=== PATIENT | female | born 1960 | race Caucasian/White ===

== ENCOUNTER 2017-05-15 22:31 | Emergency (ER) | payer OTHER ==
[~2017-05-15] VITALS: Ht 172.7 cm; Wt 71.0 kg
[~2017-05-15 22:31] MED LIST: AMPH1TAB36 PO; LORA-392 PO; OXYC-360 PO; SULF1TAB47 PO; VENL75TA91 PO
[2017-05-15 22:32] VITALS: BP 121/70; PULSE 78; RESP 18; TEMP 98.1; O2SAT 96
--- NOTE | 2017-05-15 23:42 | PD ---
HPI Chief Complaint: Bite or Sting Time Seen by Provider: 23:35 Travel History International Travel<30 days: No Contact w/Intl Traveler<30days: No Traveled to known affect area: No History of Present Illness HPI Patient is a 56-year-old female who was attacked by a pit bull that latched onto her arm and she was protecting her little dog that had been attacked by the pit bull She has right forearm injuries puncture wounds and she is not sure of her tetanus status. She has no other injury or complaints it is just painful and she has multiple punctures to her right forearm, SHe did not take anything for the pain and did not see her MD for this injury. PFSH Past Medical History ADD: Yes Arthritis: Yes Anxiety: Yes Cancer: No Cardiovascular Problems: No Diminished Hearing: No Endocrine: No Genitourinary: No Headaches: Yes Immune Disorder: No Musculoskeletal: Yes Neurologic: Yes Psychiatric: Yes Reproductive: Yes (DYSMENORRHEA) Respiratory: No Migraines: Yes ?: Not Menopausal: No : 3 Para: 1 : 2 Past Surgical History Abdominal Surgery: Yes (HERNIA REPAIR) Hysterectomy: Yes Pacemaker: No Tonsillectomy: Yes Other Surgery: Yes (BILATERAL SILICONE BREAST IMPLANTS, ADENOIDECTOMY) Social History Alcohol Use: Yes (OCCASIONAL) Tobacco Use: No (HX OF 1/2 PPD X 2 YRS) Substance Use: Yes (MARIJUANA WHEN YOUNGER) Allergies-Medications (Allergen,Severity, Reaction): Coded Allergies: No Known Allergies (Unverified Adverse Reaction, Unknown, 05/16/17) Reported Meds & Prescriptions Reported Meds & Active Scripts Active Phenergan (Promethazine HCl) 25 Mg Tablet 25 Mg PO Q6H PRN Bacitracin Topical 500 Unit/Gm Oint 1 Applic TOPICAL BID Percocet (Oxycodone-Acetaminophen) 5-325 mg Tab 1 Tab PO Q4H PRN Augmentin (Amoxicillin-Clavulanate) 875-125 Mg Tab 1 Tab PO BID Reported Bactrim Ds (Trimethoprim/Sulfamethoxazole) Tab 1 Tab PO BID 10 Days Percocet (Oxycodone/Acetaminophen) 5 Mg/325 Mg Tab 1-2 Tab PO Q4-6HPRN FOR PAIN Ativan (Lorazepam) 0.5 Mg Tab 0.5 Mg PO HSPRN Effexor (Venlafaxine HCl) 75 Mg Tab 75 Mg PO BID Adderall (Amphetamine/Dextroamphetamine) 20 Mg Tab 20 Mg PO DAILY Review of Systems Except as stated in HPI: all other systems reviewed are Neg (dog bit laceration and puncture wound) Physical Exam Narrative GENERAL: not in any apparent distress AOX3 SKIN: Warm Laceration L shaped 7 cm in total on dorsum of her R mid forearm with Sub-Q fat exposed. no tendon involvement Also.. puncture wound to the medial volar carpal tunnel area midline oozing blood. HEAD: Atraumatic. Normocephalic. EYES: Pupils equal and round. No scleral icterus. No injection or drainage. ENT: No nasal bleeding or discharge. Mucous membranes pink and moist. NECK: Trachea midline. No JVD. CARDIOVASCULAR: Regular rate and rhythm. RESPIRATORY: No accessory muscle use. Clear to auscultation. Breath sounds equal bilaterally. GASTROINTESTINAL: Abdomen soft, non-tender, nondistended. Hepatic and splenic margins not palpable. MUSCULOSKELETAL: Extremities Laceartion and scratches from teeth moreno on her dorsum right forearm and puncture wound to the volar wrist area without clubbing, cyanosis, or edema. No obvious deformities. NEUROLOGICAL: Awake and alert. No obvious cranial nerve deficits. Motor grossly within normal limits. Five out of 5 muscle strength in the arms and legs. Normal speech. PSYCHIATRIC: Appropriate mood and affect; insight and judgment normal. right forearm puncturs and lac from [facility] , dog attacked her PUG and she defending her dog got bit Data Data Last Documented VS Vital Signs Date Time Temp Pulse Resp B/P (MAP) Pulse Ox O2 Delivery O2 Flow Rate FiO2 05/16/17 01:33 05/15/17 22:32 98.1 78 18 96 Room Air Orders Orders Tetanus/Diphtheria Tox Adult (Tetanus/Di (05/15/17 23:45) Oxycodone-Acetamin 5-325 Mg (Percocet (05/15/17 23:45) Amoxicil-Clavulanate (Augmentin) (05/16/17 00:00) Lidocai-Epi 2%-1:100,000 Inj (Xylocaine- (05/16/17 00:30) Oxycodone-Acetamin 5-325 Mg (Percocet (05/16/17 01:45) MDM Medical Decision Making Medical Screen Exam Complete: Yes Emergency Medical Condition: Yes Differential Diagnosis dog bite with laceration and piuncture to tendon involvement vs bone infection osteo risk and compartment syndrome risk. other Narrative Course I sutured the L shaped flap to reduce the exposed sub-Q fat infeftion risk and irrigated with 40cc thro IV cath into the puncture to reduce risk of infection and left puncture to heal thru secondary intention , 10sutures used on dorsum flap augmentin x 10 days for pasturella and eikenella coverage bacitracin and pain meds and Rabies risk considered but dog was owed by neighbors friends and I decide not to initiate Rabies vacc Procedures Procedure Narrative laceration repair with lidocaine 2% and sterile technique 10 stitiches placed to close and l shaped flap, with good wound approximation Diagnosis Primary Impression: Dog bite Qualified Codes: W54.0XXA - Bitten by dog, initial encounter Additional Impression: Laceration of forearm Qualified Codes: S51.811A - Laceration without foreign body of right forearm, initial encounter Patient Instructions: Animal Bite (ED), General Instructions, Laceration (ED) Additional Instructions: Keep bandage on for the next 2 days , then return to ED for suture removal in 10 days, apply Bacitracin 3 times a day and take antibiotics for 10 days to prevent infection. Scripts Bacitracin Topical (Bacitracin Topical) 500 Unit/Gm Oint 1 APPLIC TOPICAL BID for Infection, #30 GM 0 Refills Prov: Reinier Mccray MD 05/16/17 Oxycodone-Acetaminophen (Percocet) 5-325 mg Tab 1 TAB PO Q4H Y for PAIN, #12 TAB 0 Refills Prov: Reinier Mccray MD 05/16/17 Amoxicillin-Clavulanate (Augmentin) 875-125 Mg Tab 1 TAB PO BID for Infection, #20 TAB 0 Refills Prov: Reinier Mccrya MD 05/16/17 Disposition: 01 DISCHARGE HOME Condition: Good Reinier Mccray MD May 15, 2017 23:42
[2017-05-15] MEDS ORDERED: TETANUS/DIPHTHERIA TOXOID ADULT 0.5 ML VIAL IM ONE (23:45)
[2017-05-15] MEDS ORDERED: oxyCODONE/ACETAMINOPHEN 5 MG/325 MG TAB PO ONE (23:45)
[2017-05-16] MEDS ORDERED: AMOXICILLIN/CLAVULANATE K 875 MG TAB PO ONE
[2017-05-16] MEDS ORDERED: LIDOCAINE 2%/EPINEPHrine 1:100,000 20ML MDV NERV BLOCK ONE (00:30)
[2017-05-16] MEDS ORDERED: BACI500O9 TOPICAL (01:42)
[2017-05-16] MEDS ORDERED: AUGM875T3 PO (01:42)
[2017-05-16] MEDS ORDERED: PERC5TAB12 PO (01:42)
[2017-05-16] MEDS ORDERED: oxyCODONE/ACETAMINOPHEN 5 MG/325 MG TAB PO ONE (01:45)
[2017-05-16] MEDS ORDERED: PROM25TA10 PO (23:30)
== END 2017-05-16 01:48 | disposition home or self-care (01) ==
LOC: NEPE 22:31
DX: S51.851A Open bite of right forearm, initial encounter (principal); F98.8 Other specified behavioral and emotional disorders with onset usually occurring in childhood and adolescence; M19.90 Unspecified osteoarthritis, unspecified site; F41.9 Anxiety disorder, unspecified; W54.0XXA Bitten by dog, initial encounter; Z87.891 Personal history of nicotine dependence; Z79.899 Other long term (current) drug therapy; Z23 Encounter for immunization
CPT/HCPCS: 12002; 90471; 90714

== ENCOUNTER 2017-05-16 21:57 | Emergency (ER) | payer OTHER ==
[~2017-05-16] VITALS: Ht 160 cm; Wt 63.6 kg
[~2017-05-16 21:57] MED LIST changes: +AUGM875T3 PO; +BACI500O9 TOPICAL; +PERC5TAB12 PO
[2017-05-16 21:58] VITALS: BP 133/68; PULSE 92; RESP 18; TEMP 98.6; O2SAT 98
[2017-05-16] MEDS ORDERED: SODIUM CHLOR 0.9% 1000 ML INJ 1,000 ML IV ONE ×2 (22:22→22:30)
[2017-05-16] MEDS ORDERED: diphenhydrAMINE HCL 50 MG/ML VIAL IVP ONE (22:30)
[2017-05-16] MEDS ORDERED: SODIUM CHLORIDE 0.9% FLUSH 10 ML FLUSH IVF PRN (22:30)
[2017-05-16] MEDS ORDERED: PROCHLORPERAZINE INJ 10 MG/2 ML VIAL IVP ONE (22:30)
[2017-05-16 22:50] LABS: AUTOMATED NEUTROPHIL # 5.4 TH/MM3 (1.8-7.7); BASOPHIL % 0.4 % (0.0-2.0); EOSINOPHIL % 0.5 % (0.0-4.0); HEMATOCRIT 41.8 % (35.0-46.0); HEMOGLOBIN 14.1 GM/DL (11.6-15.3); LYMPH % 13.4 % (9.0-44.0); LYMPHOCYTE # 0.9 TH/MM3 (1.0-4.8); MEAN CELL VOLUME 89.9 FL (80.0-100.0); MEAN CORPUSCULAR HEMOGLOBIN 30.3 PG (27.0-34.0); MEAN CORPUSCULAR HGB CONC 33.7 % (32.0-36.0); MEAN PLATELET VOLUME 8.4 FL (7.0-11.0); MONOCYTE # 0.5 TH/MM3 (0-0.9); NEUT % 78.7 % (16.0-70.0); PLATELET COUNT 242 TH/MM3 (150-450); RED BLOOD COUNT 4.65 MIL/MM3 (4.00-5.30); RED CELL DISTRIBUTION WIDTH 14.2 % (11.6-17.2); WHITE BLOOD COUNT 6.8 TH/MM3 (4.0-11.0)
[2017-05-16 23:16] LABS: BICARBONATE 27.9 MEQ/L (21.0-32.0); CREATININE 0.81 MG/DL (0.50-1.00)
[2017-05-16 23:30] VITALS: PULSE 100; RESP 16; O2SAT 98
[2017-05-16] MEDS ORDERED: PROM25TA10 PO (23:30)
--- NOTE | 2017-05-16 23:30 | PD ---
HPI Chief Complaint: GI Complaint Time Seen by Provider: 22:22 Travel History International Travel<30 days: No Contact w/Intl Traveler<30days: No Traveled to known affect area: No History of Present Illness HPI The patient's 56 years old. She complains of vomiting. She was seen here yesterday evening and underwent suture repair of a dog bite to the right forearm. Augmentin and Percocet prescribed. In the morning about 5 hours after discharge she had developed in moderate to severe nausea and repeated vomiting. She denies abdominal pain. She does report a headache typical for her. She took a friend's Zofran about 4 hours prior to ER arrival which did not help. PFSH Past Medical History ADD: Yes Arthritis: Yes Anxiety: Yes Cancer: No Cardiovascular Problems: No Diminished Hearing: No Genitourinary: No Headaches: Yes Immune Disorder: No Musculoskeletal: Yes Neurologic: Yes Psychiatric: Yes Reproductive: Yes (DYSMENORRHEA) Migraines: Yes Influenza Vaccination: No ?: Not Menopausal: No : 3 Para: 1 : 2 Past Surgical History Abdominal Surgery: Yes (HERNIA REPAIR) Hysterectomy: Yes Tonsillectomy: Yes Other Surgery: Yes (BILATERAL SILICONE BREAST IMPLANTS, ADENOIDECTOMY) Social History Alcohol Use: Yes (OCCASIONAL) Tobacco Use: No Substance Use: No Allergies-Medications (Allergen,Severity, Reaction): Coded Allergies: No Known Allergies (Unverified Adverse Reaction, Unknown, 05/16/17) Reported Meds & Prescriptions Reported Meds & Active Scripts Active Phenergan (Promethazine HCl) 25 Mg Tablet 25 Mg PO Q6H PRN Bacitracin Topical 500 Unit/Gm Oint 1 Applic TOPICAL BID Percocet (Oxycodone-Acetaminophen) 5-325 mg Tab 1 Tab PO Q4H PRN Augmentin (Amoxicillin-Clavulanate) 875-125 Mg Tab 1 Tab PO BID Reported Bactrim Ds (Trimethoprim/Sulfamethoxazole) Tab 1 Tab PO BID 10 Days Percocet (Oxycodone/Acetaminophen) 5 Mg/325 Mg Tab 1-2 Tab PO Q4-6HPRN FOR PAIN Ativan (Lorazepam) 0.5 Mg Tab 0.5 Mg PO HSPRN Effexor (Venlafaxine HCl) 75 Mg Tab 75 Mg PO BID Adderall (Amphetamine/Dextroamphetamine) 20 Mg Tab 20 Mg PO DAILY Review of Systems Except as stated in HPI: all other systems reviewed are Neg General / Constitutional: No: Fever Physical Exam Narrative GENERAL: Well-nourished well-developed 56-year-old female no acute distress SKIN: Warm and dry. R forearm with L shaped avulsion approx 3cm x 3cm, well apporximated without warmth, erythema, excessive tenderness. No discharge. HEAD: Atraumatic. Normocephalic. EYES: Pupils equal and round. No scleral icterus. No injection or drainage. ENT: No nasal bleeding or discharge. Mucous membranes pink and moist. NECK: Trachea midline. No JVD. CARDIOVASCULAR: Regular rate and rhythm. RESPIRATORY: No accessory muscle use. Clear to auscultation. Breath sounds equal bilaterally. GASTROINTESTINAL: Soft. No focus tenderness. MUSCULOSKELETAL: Extremities without clubbing, cyanosis, or edema. No obvious deformities. NEUROLOGICAL: Awake and alert. No obvious cranial nerve deficits. Motor grossly within normal limits. Five out of 5 muscle strength in the arms and legs. Normal speech. PSYCHIATRIC: Appropriate mood and affect; insight and judgment normal. Data Data Last Documented VS Vital Signs Date Time Temp Pulse Resp B/P (MAP) Pulse Ox O2 Delivery O2 Flow Rate FiO2 05/16/17 23:30 100 16 98 Room Air 05/16/17 21:58 98.6 pulse 85, bp 116/84 Vital Signs Date Time Temp Pulse Resp B/P (MAP) Pulse Ox O2 Delivery O2 Flow Rate FiO2 05/16/17 23:30 100 16 98 Room Air 05/16/17 21:58 98.6 92 18 133/68 (89) 98 Room Air Orders Orders Complete Blood Count With Diff (05/16/17 22:22) Basic Metabolic Panel (Bmp) (05/16/17 22:22) Ecg Monitoring (05/16/17 22:22) Iv Access Insert/Monitor (05/16/17 22:22) Oximetry (05/16/17 22:22) Sodium Chloride 0.9% Flush (Ns Flush) (05/16/17 22:30) Prochlorperazine Inj (Compazine Inj) (05/16/17 22:30) Diphenhydramine Inj (Benadryl Inj) (05/16/17 22:30) Sodium Chlor 0.9% 1000 Ml Inj (Ns 1000 M (05/16/17 22:22) Sodium Chlor 0.9% 1000 Ml Inj (Ns 1000 M (05/16/17 22:30) Ed Discharge Order (05/16/17 23:35) Labs Laboratory Tests Test 05/16/17 22:24 White Blood Count 6.8 TH/MM3 Red Blood Count 4.65 MIL/MM3 Hemoglobin 14.1 GM/DL Hematocrit 41.8 % Mean Corpuscular Volume 89.9 FL Mean Corpuscular Hemoglobin 30.3 PG Mean Corpuscular Hemoglobin Concent 33.7 % Red Cell Distribution Width 14.2 % Platelet Count 242 TH/MM3 Mean Platelet Volume 8.4 FL Neutrophils (%) (Auto) 78.7 % Lymphocytes (%) (Auto) 13.4 % Monocytes (%) (Auto) 7.0 % Eosinophils (%) (Auto) 0.5 % Basophils (%) (Auto) 0.4 % Neutrophils # (Auto) 5.4 TH/MM3 Lymphocytes # (Auto) 0.9 TH/MM3 Monocytes # (Auto) 0.5 TH/MM3 Eosinophils # (Auto) 0.0 TH/MM3 Basophils # (Auto) 0.0 TH/MM3 CBC Comment DIFF FINAL Differential Comment Blood Urea Nitrogen 11 MG/DL Creatinine 0.81 MG/DL Random Glucose 116 MG/DL Calcium Level 9.0 MG/DL Sodium Level 140 MEQ/L Potassium Level 3.7 MEQ/L Chloride Level 104 MEQ/L Carbon Dioxide Level 27.9 MEQ/L Anion Gap 8 MEQ/L Estimat Glomerular Filtration Rate 74 ML/MIN MDM Medical Decision Making Medical Screen Exam Complete: Yes Emergency Medical Condition: Yes Medical Record Reviewed: Yes Differential Diagnosis Electrolyte imbalance, medication side effect, obstruction, UTI, cephalgia Narrative Course The patient received IV fluids Benadryl and Compazine. She slept about 30 minutes after initiation of medications. She was reassessed at 11:30 PM and found to be resting comfortably and reported no complaint at that time. The right forearm laceration repair as well approximated without signs of cellulitis. Etiology somewhat unclear for nausea and vomiting however Percocet side effect is not excluded. The headache, because it is similar to multiple prior others, is considered less in keeping with a neurosurgical or neurologic emergency. Phenergan prescribed. Return precautions discussed. Diagnosis Primary Impression: Vomiting Qualified Codes: R11.10 - Vomiting, unspecified Additional Impression: Cephalgia Qualified Codes: R51 - Headache Referrals: Primary Care Physician 2 days Med/Other Pt SpecificInfo: Prescription(s) given Scripts Promethazine (Phenergan) 25 Mg Tablet 25 MG PO Q6H Y for NAUSEA OR VOMITING, #12 TAB 0 Refills Prov: Anthony Milan MD 05/16/17 Disposition: 01 DISCHARGE HOME Condition: Stable Anthony Milan MD May 16, 2017 23:30
[2017-05-16 23:37] VITALS: BP 166/66
== END 2017-05-17 00:20 | disposition home or self-care (01) ==
LOC: NEPE 21:57
DX: R11.2 Nausea with vomiting, unspecified (principal); R51 Headache
CPT/HCPCS: 80048; 85025; 96374; 96375; 99284; J0780; J1200; J7030